=== PATIENT | male | born 1930 | race Caucasian/White ===

== ENCOUNTER 2016-12-20 21:15 | Emergency (ER) | payer MEDICARE ==
[~2016-12-20] VITALS: Ht 180.3 cm; Wt 83.0 kg
[2016-12-20 21:18] VITALS: BP 203/86; PULSE 68; RESP 15; TEMP 97.7; O2SAT 96
--- NOTE | 2016-12-20 21:49 | RADRPT ---
EXAM DATE/TIME: 12/20/2016 21:38 [place] COMPARISON: No previous studies available for comparison. INDICATIONS : Chest pains. MEDICAL HISTORY : None. SURGICAL HISTORY : Pacemaker 5 years ago. ENCOUNTER: Initial ACUITY: 1 day PAIN SCORE: 8/10 LOCATION: Left chest FINDINGS: A single view of the chest demonstrates the lungs to be symmetrically aerated without evidence of mas s, infiltrate or effusion. The cardiomediastinal contours are unremarkable. There is a bilead pacem yesenia in place from the left subclavian approach. Osseous structures are intact. CONCLUSION: No acute disease. Niles Merida MD on December 20, 2016 at 21:47 Board Certified Radiologist. This report was verified electronically.
[2016-12-20 21:58] LABS: AUTOMATED NEUTROPHIL # 3.7 TH/MM3 (1.8-7.7); BASOPHIL % 0.6 % (0.0-2.0); EOSINOPHIL # 0.2 TH/MM3 (0-0.4); EOSINOPHIL % 3.5 % (0.0-4.0); HEMATOCRIT 41.5 % (39.0-51.0); HEMO FLAGS DIFF FINAL; LYMPH % 27.5 % (9.0-44.0); LYMPHOCYTE # 1.8 TH/MM3 (1.0-4.8); MEAN CELL VOLUME 88.6 FL (80.0-100.0); MEAN CORPUSCULAR HEMOGLOBIN 30.5 PG (27.0-34.0); MEAN CORPUSCULAR HGB CONC 34.4 % (32.0-36.0); MONO % 11.2 % (0.0-8.0); NEUT % 57.2 % (16.0-70.0); PLATELET COUNT 226 TH/MM3 (150-450); RED BLOOD COUNT 4.68 MIL/MM3 (4.50-5.90); RED CELL DISTRIBUTION WIDTH 13.1 % (11.6-17.2); WHITE BLOOD COUNT 6.5 TH/MM3 (4.0-11.0)
[2016-12-20 22:19] VITALS: BP 187/77; PULSE 61; RESP 20; O2SAT 94
[2016-12-20 22:25] LABS: BLOOD UREA NITROGEN 24 MG/DL (7-18); CHLORIDE 102 MEQ/L (98-107); CREATINE KINASE 170 U/L (39-308); GLOMERULAR FILTRATION RATE 62 ML/MIN (>89); SODIUM (NA) 136 MEQ/L (136-145)
--- NOTE | 2016-12-20 22:25 | PD ---
HPI . Chest pain Chief Complaint: Chest Pain Time Seen by Provider: 22:21 Travel History International Travel<30 days: No Contact w/Intl Traveler<30days: No Traveled to known affect area: No History of Present Illness HPI Patient presents with about a three-hour history of sharp, left-sided chest pain. The pain has actually resolved. He states that it only hurts when he moves a certain way. He denies any shortness of breath. He denies any nausea or diaphoresis. He has not taken anything for it. PFSH Past Medical History Cardiovascular Problems: Yes (HTN, PACEMAKER) Social History Tobacco Use: No Allergies-Medications (Allergen,Severity, Reaction): Coded Allergies: No Known Allergies (Unverified , 12/20/16) Reported Meds & Prescriptions Reported Meds & Active Scripts Active Reported Vitamin B-12 (Cyanocobalamin) 1,000 Mcg Tab 1,000 Mcg PO DAILY Vitamin D (Cholecalciferol) 1,000 Unit Tab 1,000 Units PO DAILY Simvastatin 20 Mg Tab 20 Mg PO HS Amlodipine (Amlodipine Besylate) 5 Mg Tab 5 Mg PO DAILY Eliquis (Apixaban) 5 Mg Tab 5 Mg PO BID Review of Systems Except as stated in HPI: all other systems reviewed are Neg General / Constitutional: No: Fever, Chills HENT: No: Headaches Cardiovascular: Positive: Chest Pain or Discomfort, No: Palpitations Respiratory: No: Cough, Shortness of Breath Gastrointestinal: No: Nausea, Vomiting Physical Exam Narrative GENERAL: This is a healthy-appearing older gentleman who is in no acute distress. SKIN: Warm and dry. HEAD: Atraumatic. Normocephalic. EYES: Pupils equal and round. ENT: No nasal bleeding or discharge. Mucous membranes pink and moist. NECK: Trachea midline. No JVD. CARDIOVASCULAR: Regular rate and rhythm. Heart sounds are normal. RESPIRATORY: No accessory muscle use. Lungs are clear with full air movement throughout. Chest wall is nontender to palpation. GASTROINTESTINAL: Abdomen soft, non-tender, nondistended. MUSCULOSKELETAL: No obvious deformities. No edema. No calf tenderness. NEUROLOGICAL: Awake and alert. No obvious cranial nerve deficits. Motor grossly within normal limits. Normal speech. PSYCHIATRIC: Appropriate mood and affect; insight and judgment normal. Data Data Last Documented VS Vital Signs Date Time Temp Pulse Resp B/P Pulse Ox O2 Delivery O2 Flow Rate FiO2 12/20/16 22:19 61 20 187/77 94 Room Air 12/20/16 21:18 97.7 Orders Electrocardiogram (12/20/16 21:29) Complete Blood Count With Diff (12/20/16 21:29) Basic Metabolic Panel (Bmp) (12/20/16 21:29) Ckmb (Isoenzyme) Profile (12/20/16 21:29) Troponin I (12/20/16 21:29) Chest, Single Ap (12/20/16 21:29) Iv Access Insert/Monitor (12/20/16 21:29) D-Dimer (12/20/16 22:21) CKMB (12/20/16 21:45) CKMB% (12/20/16 21:45) Labs Laboratory Tests Test 12/20/16 12/20/16 21:45 22:35 White Blood Count 6.5 TH/MM3 Red Blood Count 4.68 MIL/MM3 Hemoglobin 14.3 GM/DL Hematocrit 41.5 % Mean Corpuscular Volume 88.6 FL Mean Corpuscular Hemoglobin 30.5 PG Mean Corpuscular Hemoglobin 34.4 % Concent Red Cell Distribution Width 13.1 % Platelet Count 226 TH/MM3 Mean Platelet Volume 8.8 FL Neutrophils (%) (Auto) 57.2 % Lymphocytes (%) (Auto) 27.5 % Monocytes (%) (Auto) 11.2 % Eosinophils (%) (Auto) 3.5 % Basophils (%) (Auto) 0.6 % Neutrophils # (Auto) 3.7 TH/MM3 Lymphocytes # (Auto) 1.8 TH/MM3 Monocytes # (Auto) 0.7 TH/MM3 Eosinophils # (Auto) 0.2 TH/MM3 Basophils # (Auto) 0.0 TH/MM3 CBC Comment DIFF FINAL Differential Comment Sodium Level 136 MEQ/L Potassium Level 4.9 MEQ/L Chloride Level 102 MEQ/L Carbon Dioxide Level 26.1 MEQ/L Anion Gap 8 MEQ/L Blood Urea Nitrogen 24 MG/DL Creatinine 1.12 MG/DL Estimat Glomerular Filtration 62 ML/MIN Rate Random Glucose 114 MG/DL Calcium Level 8.9 MG/DL Total Creatine Kinase 170 U/L Creatine Kinase MB 1.8 NG/ML Troponin I LESS THAN 0.02 NG/ML D-Dimer Quantitative (PE/DVT) 0.27 MG/L [facility]U [facility] Medical Decision Making Medical Screen Exam Complete: Yes Emergency Medical Condition: Yes Medical Record Reviewed: Yes (he has no old records for review.) Interpretation(s) EKG shows a paced rhythm. No ST segment elevation or depression. No old EKGs for comparison. Differential Diagnosis Differential diagnosis of chest pain includes but is not limited to musculoskeletal pain, pulmonary embolism, acute coronary syndrome, pneumonia, pleurisy Narrative Course Patient presents for evaluation of sharp, left-sided chest pain which has now resolved. He had no associated symptoms. The likelihood of a life-threatening cause of his chest pain is slim. Last Impressions Chest X-Ray 12/20/162128 Signed Impressions: Service Date/Time: December 21:38 - CONCLUSION: No acute disease. Niles Merida MD The chest x-ray was independently viewed by me. CBC & BMP Diagram 12/20/16 21:45 Cardiac enzymes are negative. D-dimer is negative. He can be discharged with reassurance. Diagnosis Primary Impression: Chest pain Qualified Code: R07.9 - Chest pain, unspecified type Patient Instructions: Chest Pain (ED), General Instructions Disposition: 01 DISCHARGE HOME Condition: Stable Rossana Lala MD Dec 20, 2016 22:25
[2016-12-20 22:27] LABS: POTASSIUM 4.9 MEQ/L (3.5-5.1)
[2016-12-20] MEDS ORDERED: APIX5TAB PO (22:28)
[2016-12-20] MEDS ORDERED: VITA100064 PO (22:28)
[2016-12-20] MEDS ORDERED: SIMV20TA PO (22:28)
[2016-12-20] MEDS ORDERED: AMLO5TAB2 PO (22:28)
[2016-12-20] MEDS ORDERED: VITA10002 PO (22:28)
[2016-12-20 22:35] LABS: ANION GAP 8 MEQ/L (5-15); BICARBONATE 26.1 MEQ/L (21.0-32.0)
[2016-12-20 22:40] LABS: CKMB 1.8 NG/ML (0.5-3.6)
[2016-12-20 23:37] VITALS: BP 160/56
--- NOTE | 2016-12-21 16:43 | EKG ---
Date Performed: 12/20/2016 Time Performed: 21:54:21 PTAGE: 86 years EKG: ELECTRONIC ATRIAL PACEMAKER BORDERLINE LEFT AXIS DEVIATION MINIMAL VOLTAGE CRITERIA FOR LVH , CONSIDER NORMAL VARIANT ABNORMAL RHYTHM ECG NO PREVIOUS TRACING DOCTOR: Osiel Marmolejo Interpretating Date/Time 12/21/2016 16:41:20
== END 2016-12-20 23:38 | disposition home or self-care (01) ==
LOC: NEPE 21:15
DX: R07.9 Chest pain, unspecified (principal); R94.31 Abnormal electrocardiogram [ECG] [EKG]; I10 Essential (primary) hypertension; Z95.0 Presence of cardiac pacemaker
CPT/HCPCS: 71010; 80048; 82550; 82552; 84484; 85025; 85379; 93005